=== PATIENT | male | born 1975 | race Caucasian/White ===

== ENCOUNTER 2016-04-11 13:02 | Emergency (ER) | payer SELFPAY ==
[2016-04-11] MEDS ORDERED: Sodium Chloride 0.9% 1,000 ML IV ONE (13:22)
[2016-04-11] MEDS ORDERED: Sodium Chloride 0.9% 2.5 ML Syringe FLUSH PRN (13:22)
[2016-04-11] MEDS ORDERED: Acetaminophen 325 MG Tab PO ONE (13:22)
[2016-04-11] MEDS ORDERED: Sodium Chloride 0.9% 10 ML Syringe FLUSH PRN (13:22)
--- NOTE | 2016-04-11 13:24 | EDM.PDOC ---
ED HPI GENERAL MEDICAL PROBLEM - General Chief Complaint: General Stated Complaint: WEAK Time Seen by Provider: 04/11/16 13:15 - History of Present Illness INITIAL COMMENTS - FREE TEXT/NARRATIVE: HISTORY AND PHYSICAL: History of present illness: The patient is a 41-year-old male who presents with generalized weakness malaise cough feverish feeling that all started this morning when he woke up. The patient has been here 5 prior times for migraine headaches and does state he has a slight dull headache but it is not his usual migraine. He does also complain of a sore throat but no abdominal pain no shortness of breath no chest pain no vomiting. The patient has had several loose stools today but he has been trying to drink fluids but he agrees he is not as much as usual. The patient has not tried any [id number] cold medications or medications at all for his symptoms. Patient denies urinary issues back or neck pain. Review of systems: As per history of present illness and below otherwise all systems reviewed and negative. Past medical history: As per history of present illness and as reviewed below otherwise noncontributory. Surgical history: As per history of present illness and as reviewed below otherwise noncontributory. Social history: No reported history of drug or alcohol abuse. Family history: As per history of present illness and as reviewed below otherwise noncontributory. Physical exam: General: Well-developed well-nourished male who is nontoxic but seems less energetic than prior visits I have had with him. His vital signs of a note by me HEENT: Atraumatic, normocephalic, pupils reactive, negative for conjunctival pallor or scleral icterus, mucous membranes moist, throat clear of exudates but there is some posterior oropharyngeal erythema, uvula is midline, there is no cervical adenopathy or nuchal rigidity, neck supple, nontender, trachea midline. Lungs: Clear to auscultation slightly diminished in the bases, breath sounds equal bilaterally, chest nontender. No work or breathing or sensory muscle use Heart: S1S2, regular rhythm and slightly tachycardic on my evaluation, negative for clicks, rubs, or JVD. Abdomen: Soft, nondistended, nontender. Negative for masses or hepatosplenomegaly. Negative for costovertebral tenderness. Genitourinary: Deferred. Rectal: Deferred. Extremities: Atraumatic, negative for cords or calf pain. Neurovascular unremarkable. Neuro: Awake, alert, oriented. Cranial nerves II through XII unremarkable. Cerebellum unremarkable. Motor and sensory unremarkable throughout. Exam nonfocal. Diagnostics: Chest x-ray influenza swab rapid strep CBC CMP Therapeutics: IV fluids Tylenol Patient looks much improved after the IV fluids and his testing has been discussed with the patient. He is aware of that trace infiltrate in the left base and I will go ahead and put him on Levaquin for that. Advised pushing hydration resting and followup in our clinic. I Advised him on reasons to return to the ER Impression: Generalized weakness and malaise, early left lower lobe infiltrate Definitive disposition and diagnosis as appropriate pending reevaluation and review of above. general Pain Score (Numeric/FACES): 9 - Related Data Allergies Allergy/AdvReac Type Severity Reaction Status Date / Time ketorolac [From Toradol] Allergy Difficulty Verified 04/11/16 13:07 Breathing tramadol Allergy Difficulty Uncoded 04/11/16 13:07 Breathing Home Meds: Home Meds . [No Known Home Meds] 03/19/16 [History] Past Medical History HEENT History: Reports: Impaired vision Musculoskeletal History: Reports: Other (see below) Other Musculoskeletal History: knee surgery Neurological History: Reports: Migraines - Infectious Disease History Infectious Disease History: Reports: None - Past Surgical History Other HEENT Surgeries/Procedures: surgery to have ears put back, eye muscle surgery Musculoskeletal Surgical History: Reports: Shoulder surgery Social & Family History - Family History Family Medical History: Noncontributory - Tobacco Use Smoking Status *Q: Current Every Day Smoker Years of Tobacco use: 25 Packs/Tins Daily: 2 - Caffeine Use Caffeine Use: Reports: Coffee, Energy drinks, Soda Caffeine Use Comment: 2-3 drinks daily - Recreational Drug Use Recreational Drug Use: No ED ROS GENERAL - Review of Systems Review Of Systems: ROS reveals no pertinent complaints other than HPI. ED EXAM, GENERAL - Physical Exam Exam: See Below (See dictation) Course - Vital Signs Last Recorded V/S: Last Vital Signs Temp 37.6 C 04/11/16 13:07 Pulse 107 H 04/11/16 13:07 Resp 16 04/11/16 13:07 BP 122/71 04/11/16 13:07 Pulse Ox 94 L 04/11/16 13:07 - Orders/Labs/Meds Orders: Active Orders 24 hr Category Date Time Status CULTURE STREP A CONFIRMATION [] Stat Lab 04/11/16 14:00 Results STREP SCRN A RAPID W CULT CONF [] Stat Lab 04/11/16 14:00 Results Sodium Chloride 0.9% [Saline Flush] Med 04/11/16 13:22 Active 10 ml FLUSH ASDIRECTED PRN Sodium Chloride 0.9% [Saline Flush] Med 04/11/16 13:22 Active 2.5 ml FLUSH ASDIRECTED PRN Saline Lock Insert [OM.PC] Stat Oth 04/11/16 13:21 Ordered Medication Orders Sodium Chloride (Saline Flush) 10 ml FLUSH ASDIRECTED PRN PRN Reason: Keep Vein Open Sodium Chloride (Saline Flush) 2.5 ml FLUSH ASDIRECTED PRN PRN Reason: Keep Vein Open Labs: Laboratory Tests 04/11/16 04/11/16 Range/Units 13:34 13:34 WBC 8.88 (4.0-11.0) K/uL RBC 5.17 (4.50-5.90) M/uL Hgb 15.3 (13.0-17.0) g/dL Hct 45.4 (38.0-50.0) % MCV 87.8 (80.0-98.0) fL MCH 29.6 (27.0-32.0) pg MCHC 33.7 (31.0-37.0) g/dL RDW Std Deviation 43.4 (28.0-62.0) fl RDW Coeff of Wilbert 14 (11.0-15.0) % Plt Count 175 (150-400) K/uL MPV 9.80 (7.40-12.00) fL Neut % (Auto) 75.9 (48.0-80.0) % Lymph % (Auto) 9.7 L (16.0-40.0) % Zavala % (Auto) 12.2 (0.0-15.0) % Eos % (Auto) 1.7 (0.0-7.0) % Baso % (Auto) 0.5 (0.0-1.5) % Neut # 6.8 H (1.4-5.7) K/uL Lymph # 0.9 (0.6-2.4) K/uL Zavala # 1.1 H (0.0-0.8) K/uL Eos # 0.2 (0.0-0.7) K/uL Baso # 0.0 (0.0-0.1) K/uL Nucleated RBC % 0.0 /100WBC Nucleated RBCs # 0 K/uL Sodium 136 (136-146) mmol/L Potassium 4.1 (3.5-5.1) mmol/L Chloride 105 (98-110) mmol/L Carbon Dioxide 24 (21-31) mmol/L BUN 8 (6.0-23.0) mg/dL Creatinine 0.8 (0.6-1.5) mg/dL Est Cr Clr Drug Dosing 123.97 mL/min Estimated GFR (MDRD) > 60.0 ml/min Glucose 107 (60-110) mg/dL Calcium 9.1 (8.8-10.8) mg/dL Total Bilirubin 0.6 (0.1-1.5) mg/dL AST 18 (5-40) IU/L ALT 25 (8-54) IU/L Alkaline Phosphatase 67 (40-150) Total Protein 7.3 (6.0-8.0) g/dL Albumin 4.2 (3.5-5.0) g/dL Globulin 3.1 (2.0-3.5) g/dL Albumin/Globulin Ratio 1.4 (1.3-2.8) Meds: Medications Generic Name Dose Route Start Last Admin Trade Name Freq PRN Reason Stop Dose Admin Sodium Chloride 10 ml 04/11/16 13:22 Saline Flush FLUSH ASDIRECTED PRN Keep Vein Open Sodium Chloride 2.5 ml 04/11/16 13:22 Saline Flush FLUSH ASDIRECTED PRN Keep Vein Open Discontinued Medications Generic Name Dose Route Start Last Admin Trade Name Freq PRN Reason Stop Dose Admin Acetaminophen 650 mg 04/11/16 13:22 04/11/16 13:55 Tylenol PO 04/11/16 13:23 650 mg NOW ONE Administration Sodium Chloride 1,000 mls @ 999 mls/hr 04/11/16 13:22 04/11/16 13:56 Normal Saline IV 04/11/16 14:22 999 mls/hr STAT ONE Administration Departure - Departure Time of Disposition: 15:02 Disposition: Home, Self-Care 01 Condition: good Clinical Impression: Pneumonia Forms: ED Department Discharge Additional Instructions: The following information is given to patients seen in the emergency department who are being discharged to home. This information is to outline your options for follow-up care. We provide all patients seen in our emergency department with a follow-up referral. The need for follow-up, as well as the timing and circumstances, are variable depending upon the specifics of your emergency department visit. If you don't have a primary care physician on staff, we will provide you with a referral. We always advise you to contact your personal physician following an emergency department visit to inform them of the circumstance of the visit and for follow-up with them and/or the need for any referrals to a consulting specialist. The emergency department will also refer you to a specialist when appropriate. This referral assures that you have the opportunity for followup care with a specialist. All of these measure are taken in an effort to provide you with optimal care, which includes your followup. Under all circumstances we always encourage you to contact your private physician who remains a resource for coordinating your care. When calling for followup care, please make the office aware that this follow-up is from your recent emergency room visit. If for any reason you are refused follow-up, please contact the [facility] emergency department at and ask to speak to the emergency department charge nurse. [facility] Primary care- [place] [address] Please push hydration and avoid caffeinated products and use [id number] Tylenol or ibuprofen for pain and fevers. Take advice as directed until you are finished. Please call and followup in the clinic for further care and evaluation and return here as needed and as discussed - My Orders Last 24 Hours: My Active Orders 04/11/16 13:21 Saline Lock Insert [OM.PC] Stat 04/11/16 13:22 Sodium Chloride 0.9% [Saline Flush] 10 ml FLUSH ASDIRECTED PRN Sodium Chloride 0.9% [Saline Flush] 2.5 ml FLUSH ASDIRECTED PRN 04/11/16 14:00 CULTURE STREP A CONFIRMATION [RM] Stat STREP SCRN A RAPID W CULT CONF [RM] Stat - Assessment/Plan Last 24 Hours: My Active Orders 04/11/16 13:21 Saline Lock Insert [OM.PC] Stat 04/11/16 13:22 Sodium Chloride 0.9% [Saline Flush] 10 ml FLUSH ASDIRECTED PRN Sodium Chloride 0.9% [Saline Flush] 2.5 ml FLUSH ASDIRECTED PRN 04/11/16 14:00 CULTURE STREP A CONFIRMATION [RM] Stat STREP SCRN A RAPID W CULT CONF [RM] Stat
--- NOTE | 2016-04-11 13:51 | CR ---
EXAMINATION: Two-view chest (PA and Lateral views). HISTORY: Shortness of breath. FINDINGS: The trachea is midline. The cardiomediastinal silhouette is within normal limits. There is a trace l eft basilar atelectasis and/or infiltrate. No pleural effusion or pneumothorax. Osseous structures appear unremarkable. IMPRESSION: Trace left basilar atelectasis and/or infiltrate.
[2016-04-11 14:13] LABS: CHLORIDE,CL 105 mmol/L (98-110); SODIUM,NA 136 mmol/L (136-146)
[2016-04-11 15:21] VITALS: BP 130/59
== END 2016-04-11 15:18 | disposition home or self-care (01) ==
LOC: MW.ED 13:02
DX: J18.9 Pneumonia, unspecified organism (principal); F17.210 Nicotine dependence, cigarettes, uncomplicated; Z88.6 Allergy status to analgesic agent; Z88.8 Allergy status to other drugs, medicaments and biological substances
CPT/HCPCS: 36415; 71020; 80053; 85025; 87081; 87804; 87880; 96360; 99283; A9270; J7040

== ENCOUNTER → 2016-04-17 | Outpatient (CLI) | payer SELFPAY | LOC: MW.CHIM 08:00 | PROVIDERS: ATTEND Internal Medicine | DX: M54.9 Dorsalgia, unspecified (principal); G89.29 Other chronic pain; R51 Headache; R09.81 Nasal congestion | CPT/HCPCS: 99203 ==

== ENCOUNTER 2016-04-20 18:54 | Emergency (ER) | payer SELFPAY ==
--- NOTE | 2016-04-20 19:32 | EDM.PDOC ---
ED HPI GENERAL MEDICAL PROBLEM - General Chief Complaint: Chest Pain Stated Complaint: CHEST PAIN/TROUBLE BREATHING /PAIN HANDS Time Seen by Provider: 04/20/16 19:34 - History of Present Illness INITIAL COMMENTS - FREE TEXT/NARRATIVE: HISTORY AND PHYSICAL: History of present illness: Patient 41-year-old white male presented dyspnea patient denies fever chills nausea vomiting palpitations or other complaints patient is a smoker Review of systems: As per history of present illness and below otherwise all systems reviewed and negative. Past medical history: As per history of present illness and as reviewed below otherwise noncontributory. Surgical history: As per history of present illness and as reviewed below otherwise noncontributory. Social history: No reported history of drug or alcohol abuse. Family history: As per history of present illness and as reviewed below otherwise noncontributory. Physical exam: HEENT: Atraumatic, normocephalic, pupils reactive, negative for conjunctival pallor or scleral icterus, mucous membranes moist, throat clear, neck supple, nontender, trachea midline. Lungs: Clear to auscultation, breath sounds equal bilaterally, chest nontender. Heart: S1S2, regular, negative for clicks, rubs, or JVD. Abdomen: Soft, nondistended, nontender. Negative for masses or hepatosplenomegaly. Negative for costovertebral tenderness. Pelvis: Stable nontender. Genitourinary: Deferred. Rectal: Deferred. Extremities: Atraumatic, negative for cords or calf pain. Neurovascular unremarkable. Neuro: Awake, alert, oriented. Cranial nerves II through XII unremarkable. Cerebellum unremarkable. Motor and sensory unremarkable throughout. Exam nonfocal. Diagnostics: Chest x-ray EKG Therapeutics: None Impression: #1 dyspnea Definitive disposition and diagnosis as appropriate pending reevaluation and review of above. Anterior Chest Pain Score (Numeric/FACES): 9 - Related Data Allergies Allergy/AdvReac Type Severity Reaction Status Date / Time ketorolac [From Toradol] Allergy Difficulty Verified 04/20/16 19:07 Breathing tramadol Allergy Difficulty Uncoded 04/20/16 19:07 Breathing Home Meds: Home Meds . [No Known Home Meds] 03/19/16 [History] Past Medical History HEENT History: Reports: Impaired vision Musculoskeletal History: Reports: Other (see below) Other Musculoskeletal History: knee surgery Neurological History: Reports: Migraines Psychiatric History: Reports: None - Infectious Disease History Infectious Disease History: Reports: Chicken pox - Past Surgical History Other HEENT Surgeries/Procedures: surgery to have ears put back, eye muscle surgery Musculoskeletal Surgical History: Reports: Shoulder surgery Social & Family History - Family History Family Medical History: Noncontributory - Tobacco Use Smoking Status *Q: Current Every Day Smoker Years of Tobacco use: 20 Packs/Tins Daily: 0.5 - Caffeine Use Caffeine Use: Reports: Coffee, Energy drinks Caffeine Use Comment: 2-3 drinks daily - Recreational Drug Use Recreational Drug Use: No ED ROS GENERAL - Review of Systems Review Of Systems: ROS reveals no pertinent complaints other than HPI. ED EXAM, GENERAL - Physical Exam Exam: See Below (See dictation) Course - Vital Signs Last Recorded V/S: Last Vital Signs Temp 36.4 C 04/20/16 19:07 Pulse 71 04/20/16 19:07 Resp 16 04/20/16 19:07 BP 115/61 04/20/16 19:07 Pulse Ox 98 04/20/16 19:07 - Orders/Labs/Meds Orders: Active Orders 24 hr Category Date Time Status EKG 12 Lead [EKG Documentation Completion] [RC] STAT Care 04/20/16 19:05 Active Chest 1V Frontal [CR] Stat Exams 04/20/16 19:04 Taken Departure - Departure Time of Disposition: 19:33 Disposition: Home, Self-Care 01 Condition: good Clinical Impression: Dyspnea Forms: ED Department Discharge Additional Instructions: The following information is given to patients seen in the emergency department who are being discharged to home. This information is to outline your options for follow-up care. We provide all patients seen in our emergency department with a follow-up referral. The need for follow-up, as well as the timing and circumstances, are variable depending upon the specifics of your emergency department visit. If you don't have a primary care physician on staff, we will provide you with a referral. We always advise you to contact your personal physician following an emergency department visit to inform them of the circumstance of the visit and for follow-up with them and/or the need for any referrals to a consulting specialist. The emergency department will also refer you to a specialist when appropriate. This referral assures that you have the opportunity for followup care with a specialist. All of these measure are taken in an effort to provide you with optimal care, which includes your followup. Under all circumstances we always encourage you to contact your private physician who remains a resource for coordinating your care. When calling for followup care, please make the office aware that this follow-up is from your recent emergency room visit. If for any reason you are refused follow-up, please contact the [facility] emergency department at and asked to speak to the emergency department charge nurse. [facility] [address] [place] [id number] Albuterol metered-dose inhaler as prescribed followup primary medical doctor in our clinic as discussed return as needed discussed that smoking - My Orders Last 24 Hours: My Active Orders 04/20/16 19:05 EKG 12 Lead [EKG Documentation Completion] [RC] STAT - Assessment/Plan Last 24 Hours: My Active Orders 04/20/16 19:05 EKG 12 Lead [EKG Documentation Completion] [RC] STAT
[2016-04-20 20:03] VITALS: BP 120/60
--- NOTE | 2016-04-23 19:11 | CR ---
EXAM DATE: 04/20/16 PATIENT'S AGE: 41 Patient: IMANI JACKSON Facility: [place], [place] Site . Site : 1975 Study: XRay Chest [id number]/[id number] 7:21:19 PM Ordering Physician: Doctor Jackson Final Report: Indication: Chest pain Technique: Chest 1 view. Comparison: April 11, 2026 Findings: Cardiovascular and mediastinum: Heart size and vasculature are normal in caliber and appearance. Mediastinum is within normal limits. Lungs and pleural space: Lungs are clear. No sign of infiltrate or mass. No sign of pleural effusion. No pneumothorax. Bones and soft tissues: No significant findings. Impression: No sign of acute disease. Dictated by Verna Acosta MD @ Apr 20 2016 7:42PM (Electronic Signature) Report Signed by Proxy and Original Signed Document filed in the Medical Record. THOMASD
== END 2016-04-20 20:00 | disposition home or self-care (01) ==
LOC: MW.ED 18:54
DX: R06.00 Dyspnea, unspecified (principal); F17.210 Nicotine dependence, cigarettes, uncomplicated; Z88.6 Allergy status to analgesic agent; Z88.8 Allergy status to other drugs, medicaments and biological substances; Z98.890 Other specified postprocedural states
CPT/HCPCS: 71010; 71010-26; 93005; 99283; 99285-25

== ENCOUNTER 2016-04-28 21:44 | Emergency (ER) | payer SELFPAY ==
--- NOTE | 2016-04-28 21:54 | EDM.PDOC ---
ED HPI HEADACHE COMPLAINT - General Stated Complaint: SEVERE MIGRAINE Time Seen by Provider: 04/28/16 21:50 Source of Information: Reports: Patient History Limitations: Reports: No limitations - History of Present Illness INITIAL COMMENTS - FREE TEXT/NARRATIVE: HISTORY AND PHYSICAL: History of present illness: 41-year-old male well known to our emergency medicine service for very frequent visits for her complaints and now presents to the emergency department complaining of a "migraine from hell. "Injury as patient was cheerful jovial and texting on his phone busily. On exam patient is saying his pain is so bad it's hard to open his eyes but then after urging opens normally appears completely comfortable. No visual changes speech changes weakness or difficulty with gait. No stiff neck or fever Review of systems: As per history of present illness and below otherwise all systems reviewed and negative. Past medical history: As per history of present illness and as reviewed below otherwise noncontributory. Surgical history: As per history of present illness and as reviewed below otherwise noncontributory. Social history: No reported history of drug or alcohol abuse. Family history: As per history of present illness and as reviewed below otherwise noncontributory. Physical exam: Patient comfortable and well-appearing alert vigorous. Supple neck no acute distress HEENT: Atraumatic, normocephalic, pupils reactive, negative for conjunctival pallor or scleral icterus, mucous membranes moist, throat clear, neck supple, nontender, trachea midline. Lungs: Clear to auscultation, breath sounds equal bilaterally, chest nontender. Heart: S1S2, regular, negative for clicks, rubs, or JVD. Abdomen: Soft, nondistended, nontender. Negative for masses or hepatosplenomegaly. Negative for costovertebral tenderness. Pelvis: Stable nontender. Genitourinary: Deferred. Rectal: Deferred. Extremities: Atraumatic, negative for cords or calf pain. Neurovascular unremarkable. Neuro: Awake, alert, oriented. Cranial nerves II through XII unremarkable. Cerebellum unremarkable. Motor and sensory unremarkable throughout. Exam nonfocal. Diagnostics: [] Therapeutics: [] Impression: [] Plan: [] Definitive disposition and diagnosis as appropriate pending reevaluation and review of above. - Related Data Allergies/ADRs: Allergies Allergy/AdvReac Type Severity Reaction Status Date / Time ketorolac [From Toradol] Allergy Difficulty Verified 04/20/16 19:07 Breathing tramadol Allergy Difficulty Uncoded 04/20/16 19:07 Breathing Home Meds: Home Meds . [No Known Home Meds] 03/19/16 [History] Past Medical History HEENT History: Reports: Impaired vision Musculoskeletal History: Reports: Other (see below) Other Musculoskeletal History: knee surgery Neurological History: Reports: Migraines Psychiatric History: Reports: None - Infectious Disease History Infectious Disease History: Reports: Chicken pox - Past Surgical History Other HEENT Surgeries/Procedures: surgery to have ears put back, eye muscle surgery Musculoskeletal Surgical History: Reports: Shoulder surgery Social & Family History - Family History Family Medical History: Noncontributory - Tobacco Use Smoking Status *Q: Current Every Day Smoker Years of Tobacco use: 20 Packs/Tins Daily: 0.5 - Caffeine Use Caffeine Use: Reports: Coffee, Energy drinks Caffeine Use Comment: 2-3 drinks daily - Recreational Drug Use Recreational Drug Use: No ED ROS GENERAL - Review of Systems Review Of Systems: See Below (Per history of present illness) - Physical Exam Exam: See Below (As per history of present illness) Course - Vital Signs Text/Narrative:: Signs and symptoms consistent with what patient claims as a severe migraine however he was extremely well appearing and was cheerful and texturing in triage. Patient has a long history of malingering and drug-seeking with his girlfriend including approximately 30 visits to the emergency department within the last month and a half between he and his girlfriend. Patient treated with NSAIDs and needing. No further workup or treatment indicated. Patient agrees with outpatient followup. Strict return precautions given Last Recorded V/S: Last Vital Signs Temp 36.8 C 04/28/16 22:24 Pulse 82 04/28/16 22:24 Resp 17 04/28/16 22:24 BP 111/66 04/28/16 22:24 Pulse Ox 96 04/28/16 22:24 - Orders/Labs/Meds Meds: Medications Discontinued Medications Generic Name Dose Route Start Last Admin Trade Name Cesarq PRN Reason Stop Dose Admin Ibuprofen 800 mg 04/28/16 22:06 04/28/16 22:22 Motrin PO 04/28/16 22:07 800 mg ONETIME ONE Administration Departure - Departure Time of Disposition: 22:07 Disposition: Home, Self-Care 01 Condition: good Clinical Impression: Migraine Instructions: Migraine Headache, [id number] Referrals: Rinku Almonte DO [Primary Care Provider] - Forms: ED Department Discharge Additional Instructions: Your headache is consistent with a migraine headache which is a known diagnosis for you. Take Motrin every 6 hours and Tylenol every 4 hours as needed for pain. Drink plenty of fluids and quit smoking. The aware that continuing to smoke will have severe fracture on your long-term health . follow up with your Tomorrow morning.
[2016-04-28] MEDS ORDERED: Ibuprofen 800 MG Tab PO ONE (22:06)
[2016-04-28 22:28] VITALS: BP 111/66
== END 2016-04-28 22:25 | disposition home or self-care (01) ==
LOC: MW.ED 21:44
DX: G43.909 Migraine, unspecified, not intractable, without status migrainosus (principal); F17.210 Nicotine dependence, cigarettes, uncomplicated; Z98.890 Other specified postprocedural states; Z88.5 Allergy status to narcotic agent; Z88.6 Allergy status to analgesic agent
CPT/HCPCS: 99283; A9270

== ENCOUNTER 2016-05-01 14:42 | Emergency (ER) | payer SELFPAY ==
--- NOTE | 2016-05-01 15:38 | CR ---
EXAMINATION: Right shoulder HISTORY: Pain COMPARISON: None TECHNIQUE: 3 views FINDINGS/IMPRESSION: There is no acute osseous abnormality, dislocation, or fracture identified. Bon e mineralization appears normal. 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
--- NOTE | 2016-05-01 15:45 | EDM.PDOC ---
ED HPI Trauma - General Chief Complaint: Upper Extremity Injury/Pain Stated Complaint: RT SHOULDER HURTS Time Seen by Provider: 05/01/16 15:00 Source: Reports: Patient History Limitations: Reports: No limitations - History of Present Illness INITIAL COMMENTS - FREE TEXT/NARRATIVE: History of present illness: [41-year-old male presenting with complaints of acute right shoulder pain status post lifting furniture to help a friend move. Patient has chronic musculoskeletal issues inclusive of a rotator cuff repair on the other shoulder. ] Review of systems: As per history of present illness and below otherwise all systems reviewed and negative. Past medical history: As per history of present illness and as reviewed below otherwise noncontributory. Surgical history: As per history of present illness and as reviewed below otherwise noncontributory. Social history: No reported history of drug or alcohol abuse. Family history: As per history of present illness and as reviewed below otherwise noncontributory. Physical exam: HEENT: Atraumatic, normocephalic, pupils reactive, negative for conjunctival pallor or scleral icterus, mucous membranes moist, throat clear, neck supple, nontender, trachea midline. Lungs: Clear to auscultation, breath sounds equal bilaterally, chest nontender. Heart: S1S2, regular, negative for clicks, rubs, or JVD. Abdomen: Soft, nondistended, nontender. Negative for masses or hepatosplenomegaly. Negative for costovertebral tenderness. Pelvis: Stable nontender. Genitourinary: Deferred. Rectal: Deferred. Extremities: Atraumatic, negative for cords or calf pain. Neurovascular unremarkable. Neuro: Awake, alert, oriented. Cranial nerves II through XII unremarkable. Cerebellum unremarkable. Motor and sensory unremarkable throughout. Exam nonfocal. A certain amount of guarding noted with with active range of motion of right arm. Some small amount of crepitus noted. Diagnostics: [X-ray right shoulder] Therapeutics: [] Impression: [Arthritis right shoulder] Plan: [Meloxicam Definitive disposition and diagnosis as appropriate pending reevaluation and review of above. Allergies/ADRs: Allergies ketorolac [From Toradol] Allergy (Verified 05/01/16 14:59) Difficulty Breathing tramadol Allergy (Uncoded 04/20/16 19:07) Difficulty Breathing Home Medications: Ambulatory Orders Meloxicam 7.5 mg PO BID #60 tablet 05/01/16 Past Medical History - Past Health History Medical/Surgical History: Denies Medical/Surgical History HEENT History: Reports: Impaired vision Musculoskeletal History: Reports: Other (see below) Other Musculoskeletal History: knee surgery Neurological History: Reports: Migraines Psychiatric History: Reports: None - Infectious Disease History Infectious Disease History: Reports: Chicken pox - Past Surgical History Other HEENT Surgeries/Procedures: surgery to have ears put back, eye muscle surgery Musculoskeletal Surgical History: Reports: Shoulder surgery Social & Family History - Family History Family Medical History: Noncontributory - Tobacco Use Smoking Status *Q: Current Every Day Smoker Years of Tobacco use: 20 Packs/Tins Daily: 0.7 - Caffeine Use Caffeine Use: Reports: Coffee, Energy drinks, Soda Caffeine Use Comment: 2-3 drinks daily - Recreational Drug Use Recreational Drug Use: No Review of Systems - Review of Systems Review Of Systems: See Below (See history of present illness) Trauma Exam - Physical Exam Exam: See Below (The history of present illness) Course - Vital Signs Last Recorded V/S: Last Vital Signs Temp 37.1 C 05/01/16 14:57 Pulse 82 05/01/16 14:57 Resp 16 05/01/16 14:57 BP 120/65 05/01/16 14:57 Pulse Ox 99 05/01/16 14:57 - Orders/Labs/Meds Orders: Active Orders 24 hr Category Date Time Status Shoulder Comp Rt [CR] Stat Exams 05/01/16 15:03 Ordered Departure - Departure Time of Disposition: 15:47 Disposition: Home, Self-Care 01 Condition: good Clinical Impression: Arthritis Forms: ED Department Discharge Additional Instructions: The following information is given to patients seen in the emergency department who are being discharged to home. This information is to outline your options for follow-up care. We provide all patients seen in our emergency department with a follow-up referral. The need for follow-up, as well as the timing and circumstances, are variable depending upon the specifics of your emergency department visit. If you don't have a primary care physician on staff, we will provide you with a referral. We always advise you to contact your personal physician following an emergency department visit to inform them of the circumstance of the visit and for follow-up with them and/or the need for any referrals to a consulting specialist. The emergency department will also refer you to a specialist when appropriate. This referral assures that you have the opportunity for follow-up care with a specialist. All of these measure are taken in an effort to provide you with optimal care, which includes your follow-up. Under all circumstances we always encourage you to contact your private physician who remains a resource for coordinating your care. When calling for follow-up care, please make the office aware that this follow-up is from your recent emergency room visit. If for any reason you are refused follow-up, please contact the [facility] Emergency Department at and asked to speak to the emergency department charge n Followup with primary care provider Return to ED as needed as discussed - My Orders Last 24 Hours: My Active Orders 05/01/16 15:03 Shoulder Comp Rt [CR] Stat - Assessment/Plan Last 24 Hours: My Active Orders 05/01/16 15:03 Shoulder Comp Rt [CR] Stat
[2016-05-01 16:20] VITALS: BP 116/61
== END 2016-05-01 16:15 | disposition home or self-care (01) ==
LOC: MW.ED 14:42
DX: M19.011 Primary osteoarthritis, right shoulder (principal); F17.210 Nicotine dependence, cigarettes, uncomplicated; Z88.8 Allergy status to other drugs, medicaments and biological substances; Z79.899 Other long term (current) drug therapy; Z98.890 Other specified postprocedural states
CPT/HCPCS: 73030-26-RT; 73030-RT; 99283

== ENCOUNTER → 2016-05-08 | Outpatient (CLI) | payer SELFPAY | LOC: MW.CHIM 08:00 | PROVIDERS: ATTEND Internal Medicine | DX: G89.29 Other chronic pain (principal); M54.9 Dorsalgia, unspecified; R09.81 Nasal congestion; R51 Headache | CPT/HCPCS: 99214 ==

== ENCOUNTER 2016-05-16 18:32 | Emergency (ER) | payer SELFPAY ==
--- NOTE | 2016-05-16 19:01 | EDM.PDOC ---
ED HISTORY OF PRESENT ILLNESS - General Chief Complaint: Chest Pain Stated Complaint: PT HAS CHEST PAINS Time Seen by Provider: 05/16/16 18:40 Source of Information: Reports: Patient, EMS History Limitations: Reports: No limitations - History of Present Illness INITIAL COMMENTS - FREE TEXT/NARRATIVE: HISTORY AND PHYSICAL: History of present illness: [Patient comes to the emergency room via EMS. He complains of left mid chest pain for the past 2 days. He complains of a constant sensation of hammering over his sternum. No known precipitating events. He denies shortness of breath and difficulty breathing. No radiation into his neck, jaw, left shoulder or down his arms. No coughing. Has not taken any medications to relieve his chest pain, and has not found any relieving treatments for his symptoms. Was given one dose of nitroglycerin and 324 mg of aspirin by EMS in route to ER. Smokes 1 ppd. Denies drug use. Rare ETOH use. ] Review of systems: As per history of present illness and below otherwise all systems reviewed and negative. Past medical history: As per history of present illness and as reviewed below otherwise noncontributory. Surgical history: As per history of present illness and as reviewed below otherwise noncontributory. Social history: No reported history of drug or alcohol abuse. Family history: As per history of present illness and as reviewed below otherwise noncontributory. Physical exam: HEENT: Atraumatic, normocephalic. negative for conjunctival pallor or scleral icterus. mucous membranes moist. Throat is clear. neck supple, no lymphadenopathy. trachea midline. Lungs: Clear to auscultation, breath sounds equal bilaterally. Heart: S1S2, regular rate and rhythm. negative for clicks, rubs. Chest pain is easily reproducible with palpation over the upper sternal area. Abdomen: Normoactive bowel sounds. Soft, nondistended, nontender. Pelvis: Stable nontender. Genitourinary: Deferred. Rectal: Deferred. Extremities: Atraumatic. No cyanosis or edema to feet or lower legs. Neuro: Awake, alert, oriented. Cranial nerves II through XII unremarkable. Motor and sensory unremarkable throughout. Exam nonfocal. Diagnostics: [CBC, CMP, troponin, chest x-ray, EKG] Therapeutics: [Norflex 30mg IM] Impression: [chest pain, non-cardiac] Plan: [Reviewed the following with the patient: lab results are unremarkable and troponin was within normal limits. EKG is unchanged from previous and chest x- ray is unremarkable. He is unable to tolerate Toradol and tramadol. He is given Norflex 30 mg IM. Tylenol or ibuprofen as needed for discomfort in his chest. Followup with his primary care provider. All of his questions are answered and concerns are addressed.] Definitive disposition and diagnosis as appropriate pending reevaluation and review of above. - Related Data Allergies/ADRs: Allergies Allergy/AdvReac Type Severity Reaction Status Date / Time ketorolac [From Toradol] Allergy Difficulty Verified 05/16/16 18:42 Breathing tramadol Allergy Difficulty Uncoded 04/20/16 19:07 Breathing Home Meds: Home Meds Hydrocodone/Acetaminophen [[place] 10-325 Tablet] 1 tab PO ASDIRECTED 05/16/16 [ History] Past Medical History - Past Health History Medical/Surgical History: Denies Medical/Surgical History HEENT History: Reports: Impaired vision Musculoskeletal History: Reports: Other (see below) Other Musculoskeletal History: knee surgery Neurological History: Reports: Migraines Psychiatric History: Reports: None - Infectious Disease History Infectious Disease History: Reports: Chicken pox - Past Surgical History Other HEENT Surgeries/Procedures: surgery to have ears put back, eye muscle surgery Musculoskeletal Surgical History: Reports: Shoulder surgery Social & Family History - Family History Family Medical History: Noncontributory - Tobacco Use Smoking Status *Q: Current Every Day Smoker Years of Tobacco use: 20 Packs/Tins Daily: 1 - Caffeine Use Caffeine Use: Reports: None Caffeine Use Comment: 2-3 drinks daily - Recreational Drug Use Recreational Drug Use: No ED ROS GENERAL - Review of Systems Review Of Systems: ROS reveals no pertinent complaints other than HPI. ED EXAM, GENERAL - Physical Exam Exam: See Below Course - Vital Signs Last Recorded V/S: Last Vital Signs Temp 99.2 F 05/16/16 20:14 Pulse 78 05/16/16 20:14 Resp 18 05/16/16 20:14 BP 122/73 05/16/16 20:14 Pulse Ox 96 05/16/16 20:14 - Orders/Labs/Meds Orders: Active Orders 24 hr Category Date Time Status EKG 12 Lead [EKG Documentation Completion] [RC] URGENT Care 05/16/16 18:36 Active Chest 2V [CR] Stat Exams 05/16/16 18:48 Taken Labs: Laboratory Tests 05/16/16 05/16/16 05/16/16 Range/Units 18:55 18:55 18:55 WBC 7.54 (4.0-11.0) K/uL RBC 4.93 (4.50-5.90) M/uL Hgb 14.7 (13.0-17.0) g/dL Hct 43.2 (38.0-50.0) % MCV 87.6 (80.0-98.0) fL MCH 29.8 (27.0-32.0) pg MCHC 34.0 (31.0-37.0) g/dL RDW Std Deviation 41.0 (28.0-62.0) fl RDW Coeff of Wilbert 13 (11.0-15.0) % Plt Count 184 (150-400) K/uL MPV 9.30 (7.40-12.00) fL Neut % (Auto) 45.6 L (48.0-80.0) % Lymph % (Auto) 42.2 H (16.0-40.0) % Griggs % (Auto) 8.0 (0.0-15.0) % Eos % (Auto) 3.7 (0.0-7.0) % Baso % (Auto) 0.5 (0.0-1.5) % Neut # (Auto) 3.4 (1.4-5.7) K/uL Lymph # (Auto) 3.2 H (0.6-2.4) K/uL Griggs # (Auto) 0.6 (0.0-0.8) K/uL Eos # (Auto) 0.3 (0.0-0.7) K/uL Baso # (Auto) 0.0 (0.0-0.1) K/uL Nucleated RBC % 0.0 /100WBC Nucleated RBCs # 0 K/uL Sodium 140 (136-146) mmol/L Potassium 4.1 (3.5-5.1) mmol/L Chloride 108 (98-110) mmol/L Carbon Dioxide 23 (21-31) mmol/L BUN 13 (6.0-23.0) mg/dL Creatinine 0.9 (0.6-1.5) mg/dL Est Cr Clr Drug Dosing 110.20 mL/min Estimated GFR (MDRD) > 60.0 ml/min Glucose 94 (60-110) mg/dL Calcium 8.9 (8.8-10.8) mg/dL Total Bilirubin 0.3 (0.1-1.5) mg/dL AST 13 (5-40) IU/L ALT 15 (8-54) IU/L Alkaline Phosphatase 57 (40-150) Troponin I < 0.10 (0.0-0.29) NG/ML Total Protein 6.7 (6.0-8.0) g/dL Albumin 3.8 (3.5-5.0) g/dL Globulin 2.9 (2.0-3.5) g/dL Albumin/Globulin Ratio 1.3 (1.3-2.8) Meds: Medications Discontinued Medications Generic Name Dose Route Start Last Admin Trade Name Freq PRN Reason Stop Dose Admin Orphenadrine Citrate 30 mg 05/16/16 20:00 Norflex IM Q12H MAMADOU Orphenadrine Citrate 30 mg 05/16/16 19:50 05/16/16 20:00 Norflex IM 05/16/16 19:51 30 mg NOW STA Administration Departure - Departure Time of Disposition: 19:50 Disposition: Home, Self-Care 01 Clinical Impression: Chest pain, non-cardiac Instructions: Nonspecific Chest Pain Referrals: PCP,None [Primary Care Provider] - Forms: ED Department Discharge Additional Instructions: The following information is given to patients seen in the emergency department who are being discharged to home. This information is to outline your options for follow-up care. We provide all patients seen in our emergency department with a follow-up referral. The need for follow-up, as well as the timing and circumstances, are variable depending upon the specifics of your emergency department visit. If you don't have a primary care physician on staff, we will provide you with a referral. We always advise you to contact your personal physician following an emergency department visit to inform them of the circumstance of the visit and for follow-up with them and/or the need for any referrals to a consulting specialist. The emergency department will also refer you to a specialist when appropriate. This referral assures that you have the opportunity for follow-up care with a specialist. All of these measure are taken in an effort to provide you with optimal care, which includes your follow-up. Under all circumstances we always encourage you to contact your private physician who remains a resource for coordinating your care. When calling for follow-up care, please make the office aware that this follow-up is from your recent emergency room visit. If for any reason you are refused follow-up, please contact the [facility] emergency department at and asked to speak to the emergency department charge nurse. [facility] Primary [facility] [address] [place] [id number] Followup with your primary care provider in 48-72 hours. Take all medications as prescribed. May take ibuprofen and Tylenol as needed for discomfort. Return to ER as needed as discussed. - My Orders Last 24 Hours: My Active Orders 05/16/16 18:48 Chest 2V [CR] Stat - Assessment/Plan Last 24 Hours: My Active Orders 05/16/16 18:48 Chest 2V [CR] Stat
[2016-05-16 19:26] LABS: CHLORIDE,CL 108 mmol/L (98-110); SODIUM,NA 140 mmol/L (136-146)
[2016-05-16 20:15] VITALS: BP 122/73
--- NOTE | 2016-05-17 10:18 | CR ---
EXAM DATE: 05/16/16 PATIENT'S AGE: 41 Patient: IMANI JACKSON Facility: [place], [place] Site . Site : [id number] Study: XRay Chest [id number]/[id number] 7:12:43 PM Ordering Physician: Doctor Jackson Final Report: INDICATION: Low-grade fever. Chest pain. Shortness of breath. TECHNIQUE: PA and lateral chest. COMPARISON: Single-view chest April 20, 2016 and two-view chest x-ray April 11, 2016. FINDINGS: Clear lungs. Normal heart size and pulmonary vascularity. Normal included skeletal thorax. IMPRESSION: No acute cardiopulmonary process identified. No significant change. Dictated by Rinku Simmons MD @ 05/16/2016 7:16:04 PM Dictated by: Rinku Simmons MD @ 05/16/2016 19:16:07 (Electronic Signature) Report Signed by Proxy and Original Signed Document filed in the Medical Record. [facility] SYSTEMVanessa
== END 2016-05-16 20:29 | disposition home or self-care (01) ==
LOC: MW.ED 18:32
DX: R07.89 Other chest pain (principal); Z98.890 Other specified postprocedural states; F17.210 Nicotine dependence, cigarettes, uncomplicated; Z88.5 Allergy status to narcotic agent; Z88.6 Allergy status to analgesic agent
CPT/HCPCS: 36415; 71020; 80053; 84484; 85025; 93005; 96372; 99285; J2360; 99284

== ENCOUNTER 2016-06-11 02:03 | Emergency (ER) | payer SELFPAY ==
--- NOTE | 2016-06-11 02:10 | EDM.PDOC ---
ED HPI GENERAL MEDICAL PROBLEM - General Stated Complaint: KIDNEY PROBLEMS Time Seen by Provider: 06/11/16 02:07 - History of Present Illness INITIAL COMMENTS - FREE TEXT/NARRATIVE: HISTORY AND PHYSICAL: History of present illness: Patient 41-year-old male presents with concern of chronic right back pain he states he's had multiple medical problems related this he is well-known to the emergency department and her multiple times for a variety of different complaints has been no reported fever chills vomiting diarrhea trauma or other concerns but no numbness weakness incontinence or retention of bowel or bladder. Review of systems: As per history of present illness and below otherwise all systems reviewed and negative. Past medical history: As per history of present illness and as reviewed below otherwise noncontributory. Surgical history: As per history of present illness and as reviewed below otherwise noncontributory. Social history: No reported history of drug or alcohol abuse. Family history: As per history of present illness and as reviewed below otherwise noncontributory. Physical exam: HEENT: Atraumatic, normocephalic, pupils reactive, negative for conjunctival pallor or scleral icterus, mucous membranes moist, throat clear, neck supple, nontender, trachea midline. Lungs: Clear to auscultation, breath sounds equal bilaterally, chest nontender. Heart: S1S2, regular, negative for clicks, rubs, or JVD. Abdomen: Soft, nondistended, nontender. Negative for masses or hepatosplenomegaly. Negative for costovertebral tenderness. Pelvis: Stable nontender. Genitourinary: Deferred. Rectal: Deferred. Extremities: Atraumatic, negative for cords or calf pain. Neurovascular unremarkable. Neuro: Awake, alert, oriented. Cranial nerves II through XII unremarkable. Cerebellum unremarkable. Motor and sensory unremarkable throughout. Exam nonfocal. Diagnostics: UA urine culture and sensitivity Therapeutics: None Impression: #1 right back pain Definitive disposition and diagnosis as appropriate pending reevaluation and review of above. - Related Data Allergies Allergy/AdvReac Type Severity Reaction Status Date / Time ketorolac [From Toradol] Allergy Difficulty Verified 05/16/16 18:42 Breathing tramadol Allergy Difficulty Uncoded 04/20/16 19:07 Breathing Home Meds: Home Meds Hydrocodone/Acetaminophen [[place] 10-325 Tablet] 1 tab PO ASDIRECTED 05/16/16 [ History] Past Medical History - Past Health History Medical/Surgical History: Denies Medical/Surgical History HEENT History: Reports: Impaired vision Musculoskeletal History: Reports: Other (see below) Other Musculoskeletal History: knee surgery Neurological History: Reports: Migraines Psychiatric History: Reports: None - Infectious Disease History Infectious Disease History: Reports: Chicken pox - Past Surgical History Other HEENT Surgeries/Procedures: surgery to have ears put back, eye muscle surgery Musculoskeletal Surgical History: Reports: Shoulder surgery Social & Family History - Family History Family Medical History: Noncontributory - Tobacco Use Smoking Status *Q: Current Every Day Smoker Years of Tobacco use: 20 Packs/Tins Daily: 1 - Caffeine Use Caffeine Use: Reports: None Caffeine Use Comment: 2-3 drinks daily - Recreational Drug Use Recreational Drug Use: No ED ROS GENERAL - Review of Systems Review Of Systems: ROS reveals no pertinent complaints other than HPI. ED EXAM, GENERAL - Physical Exam Exam: See Below (See dictation) Course - Orders/Labs/Meds Orders: Active Orders 24 hr Category Date Time Status CULTURE URINE [RM] Stat Lab 06/11/16 02:08 Uncollected UA W/MICROSCOPIC [URIN] Stat Lab 06/11/16 02:07 Uncollected Departure - Departure Time of Disposition: 02:09 Disposition: Home, Self-Care 01 Condition: good Clinical Impression: Back pain Additional Instructions: The following information is given to patients seen in the emergency department who are being discharged to home. This information is to outline your options for follow-up care. We provide all patients seen in our emergency department with a follow-up referral. The need for follow-up, as well as the timing and circumstances, are variable depending upon the specifics of your emergency department visit. If you don't have a primary care physician on staff, we will provide you with a referral. We always advise you to contact your personal physician following an emergency department visit to inform them of the circumstance of the visit and for follow-up with them and/or the need for any referrals to a consulting specialist. The emergency department will also refer you to a specialist when appropriate. This referral assures that you have the opportunity for followup care with a specialist. All of these measure are taken in an effort to provide you with optimal care, which includes your followup. Under all circumstances we always encourage you to contact your private physician who remains a resource for coordinating your care. When calling for followup care, please make the office aware that this follow-up is from your recent emergency room visit. If for any reason you are refused follow-up, please contact the [facility] emergency department at and asked to speak to the emergency department charge nurse. [facility] - Urology [address] [place] [id number] Follow up primary medical doctor one to 2 days return as needed as discussed call the schedule routine appointment with urology about his - My Orders Last 24 Hours: My Active Orders 06/11/16 02:07 UA W/MICROSCOPIC [URIN] Stat 06/11/16 02:08 CULTURE URINE [RM] Stat - Assessment/Plan Last 24 Hours: My Active Orders 06/11/16 02:07 UA W/MICROSCOPIC [URIN] Stat 06/11/16 02:08 CULTURE URINE [RM] Stat
[2016-06-11 02:11] VITALS: BP 136/80
== END 2016-06-11 02:35 | disposition home or self-care (01) ==
LOC: MW.ED 02:03
DX: M54.9 Dorsalgia, unspecified (principal); F17.210 Nicotine dependence, cigarettes, uncomplicated; Z88.5 Allergy status to narcotic agent
CPT/HCPCS: 81001; 87086; 99282; 99284

== ENCOUNTER 2016-06-17 18:40 | Emergency (ER) | payer SELFPAY ==
[2016-06-17] MEDS ORDERED: Acetaminophen 325 MG Tab PO ONE (19:32)
--- NOTE | 2016-06-17 19:33 | EDM.PDOC ---
ED HPI GENERAL MEDICAL PROBLEM - General Chief Complaint: General Stated Complaint: DEHYDRATION Time Seen by Provider: 06/17/16 19:09 Source of Information: Reports: Patient History Limitations: Reports: No limitations - History of Present Illness INITIAL COMMENTS - FREE TEXT/NARRATIVE: HISTORY AND PHYSICAL: History of present illness: [11-year-old male very well known to our emergency medicine service for extremely frequent visits to the emergency department with a long history of drug-seeking behavior currently under a retraining order from coming to the emergency department except as a patient, now presents emergency Department as the patient reporting that he said some diarrhea recently patient is concerned he might be dehydrated. Denies abdominal pain. No vomiting. He states he is thirsty he has been drinking a lot of liquids. He has no tachycardia on arrival and is well-appearing] Review of systems: As per history of present illness and below otherwise all systems reviewed and negative. Past medical history: As per history of present illness and as reviewed below otherwise noncontributory. Surgical history: As per history of present illness and as reviewed below otherwise noncontributory. Social history: No reported history of drug or alcohol abuse. Family history: As per history of present illness and as reviewed below otherwise noncontributory. Physical exam: Well-appearing male mucous membranes moist and intact alert and appropriate benign abdomen no evidence of clinically 100 HEENT: Atraumatic, normocephalic, pupils reactive, negative for conjunctival pallor or scleral icterus, mucous membranes moist, throat clear, neck supple, nontender, trachea midline. Lungs: Clear to auscultation, breath sounds equal bilaterally, chest nontender. Heart: S1S2, regular, negative for clicks, rubs, or JVD. Abdomen: Soft, nondistended, nontender. Negative for masses or hepatosplenomegaly. Negative for costovertebral tenderness. Pelvis: Stable nontender. Genitourinary: Deferred. Rectal: Deferred. Extremities: Atraumatic, negative for cords or calf pain. Neurovascular unremarkable. Neuro: Awake, alert, oriented. Cranial nerves II through XII unremarkable. Cerebellum unremarkable. Motor and sensory unremarkable throughout. Exam nonfocal. Diagnostics: [] Therapeutics: [] Impression: [] Plan: [History suggestive of mild viral diarrhea by patient's description. Benign abdomen and remainder of exam is unremarkable no clinical evidence of dehydration no further workup or treatment indicated. Patient and no tachycardia. Patient says his headache mild headache that is typical for him and it was gradual onset so he was given Tylenol for this. Patient agrees with outpatient followup and strict return precautions given] Definitive disposition and diagnosis as appropriate pending reevaluation and review of above. Lower Back Pain Score (Numeric/FACES): 7 - Related Data Allergies Allergy/AdvReac Type Severity Reaction Status Date / Time ketorolac [From Toradol] Allergy Difficulty Verified 06/17/16 19:03 Breathing tramadol Allergy Difficulty Uncoded 06/17/16 19:03 Breathing Home Meds: Home Meds . [No Known Home Meds] 06/11/16 [History] Past Medical History - Past Health History Medical/Surgical History: Denies Medical/Surgical History HEENT History: Reports: Impaired vision Musculoskeletal History: Reports: Other (see below) Other Musculoskeletal History: knee surgery Neurological History: Reports: Migraines Psychiatric History: Reports: None - Infectious Disease History Infectious Disease History: Reports: Chicken pox - Past Surgical History Other HEENT Surgeries/Procedures: surgery to have ears put back, eye muscle surgery Musculoskeletal Surgical History: Reports: Shoulder surgery Social & Family History - Family History Family Medical History: Noncontributory - Tobacco Use Smoking Status *Q: Current Every Day Smoker Years of Tobacco use: 25 Packs/Tins Daily: 1 - Caffeine Use Caffeine Use: Reports: None Caffeine Use Comment: 2-3 drinks daily - Recreational Drug Use Recreational Drug Use: No ED ROS GENERAL - Review of Systems Review Of Systems: See Below (Per history of present illness) ED EXAM, GENERAL - Physical Exam Exam: See Below (Per history of present illness) Course - Vital Signs Last Recorded V/S: Last Vital Signs Temp 37.0 C 06/17/16 19:47 Pulse 94 06/17/16 19:47 Resp 18 06/17/16 19:47 BP 128/61 06/17/16 19:47 Pulse Ox 94 L 06/17/16 19:47 - Orders/Labs/Meds Meds: Medications Discontinued Medications Generic Name Dose Route Start Last Admin Trade Name Freq PRN Reason Stop Dose Admin Acetaminophen 650 mg 06/17/16 19:32 06/17/16 19:45 Tylenol PO 06/17/16 19:33 650 mg NOW ONE Administration Departure - Departure Time of Disposition: 19:30 Disposition: Home, Self-Care 01 Condition: good Clinical Impression: Diarrhea, Anxiety Instructions: Diarrhea, Adult Referrals: Rinku Almonte DO [Primary Care Provider] - Forms: ED Department Discharge Additional Instructions: By your description you have diarrhea and it appears that you're doing a good job maintaining your hydration despite this. Drink plenty of fluids ideally a variety of fluids and not only water. Followup with your Dr. in the next day or 2 and return immediately for new severe or worsening symptoms
[2016-06-17 19:47] VITALS: BP 128/61
== END 2016-06-17 19:48 | disposition home or self-care (01) ==
LOC: MW.ED 18:40
DX: R19.7 Diarrhea, unspecified (principal); F41.9 Anxiety disorder, unspecified; G43.909 Migraine, unspecified, not intractable, without status migrainosus; F17.210 Nicotine dependence, cigarettes, uncomplicated; Z88.5 Allergy status to narcotic agent
CPT/HCPCS: 99284; A9270; 99282

== ENCOUNTER 2017-03-19 23:22 | Emergency (ER) | payer OTHER ==
--- NOTE | 2017-03-20 00:01 | EDM.PDOC ---
ED HPI GENERAL MEDICAL PROBLEM - General Chief Complaint: Upper Extremity Injury/Pain Stated Complaint: PT FELL AND HURT LT SHOULDER Time Seen by Provider: 03/19/17 23:27 - History of Present Illness INITIAL COMMENTS - FREE TEXT/NARRATIVE: HISTORY AND PHYSICAL: History of present illness: The patient is a 42-year-old male who has a history last year of frequent ER visits and drug-seeking behavior who presents with complaints of left shoulder pain with a new diagnosis of a "tear" in his shoulder that was diagnosed by an MRI in [place] month ago. He says he received a "cortisone injection" from the orthopedic doctor there and he was supposed to follow-up to decide what the next step would be in his been doing well until he had a fall 2 days ago when he was on some steps and lost his footing and fell forward telling nursing he landed on his hands but telling me he landed on his bent arm and reinjured his left shoulder. Patient denied that he passed out or blacked out and did not hit his head neck or back and denies any hand pain to me. He has had no systemic complaints and has been using [id number] Tylenol for pain for his shoulder. Patient presents tonight for reevaluation and he has not contacted his doctor in [place]. Review of systems: As per history of present illness and below otherwise all systems reviewed and negative. Past medical history: As per history of present illness and as reviewed below otherwise noncontributory. Surgical history: As per history of present illness and as reviewed below otherwise noncontributory. Social history: No reported history of drug or alcohol abuse. Family history: As per history of present illness and as reviewed below otherwise noncontributory. Physical exam: Gen.: Well-developed well-nourished man who is nontoxic and vital signs were noted by me HEENT: Atraumatic, normocephalic, negative for conjunctival pallor or scleral icterus, mucous membranes moist, throat clear, neck supple, nontender, trachea midline. Lungs: Clear to auscultation, breath sounds equal bilaterally, chest nontender. Heart: S1S2, regular and rhythm no overt murmurs Abdomen: Soft, nondistended, nontender. NABS Pelvis: Deferred Genitourinary: Deferred. Rectal: Deferred. Extremities: Atraumatic, there are no bony deformities start all extremities including the left shoulder area. There is no soft tissue swelling or joint effusion or trigger point tenderness on my exam and distally neurovascular is intact without any tenderness to the distal humerus elbow forearm wrist or hand. When I palpate the shoulder area the patient does not complain of discomfort. The legs are negative for cords or calf pain. Neurovascular unremarkable. Neuro: Awake, alert, oriented. Cranial nerves II through XII unremarkable. Cerebellum unremarkable. Motor and sensory unremarkable throughout. Exam nonfocal. Diagnostics: X-ray left shoulder Therapeutics: Sling Patient tells me that he is allergic to Toradol and tramadol and took ibuprofen and Tylenol prior to coming here. I've given him an ice pack and will give him 2 Tylenol with codeine here I did perform a search in the [place] prescription awareness program and the patient has been frequenting the Emergency Department at [facility] in [place] with visits in November as well as a visit on February 01 and with all of these he received pain medication, narcotics, for his complaints. Patient was seen February 20 and prescribed Tylenol with codeine by Dr. Hough and prior to that prescription he had received Tylenol with codeine on February 12. I discussed all of this with the patient and the need for him to follow-up with Dr. Hough for further care and management of his pain. I will provide him a sling and advised resting of the joint area ice and [id number] medications until he can follow-up with his orthopedic doctor. Impression: Left shoulder injury/contusion acute on chronic Definitive disposition and diagnosis as appropriate pending reevaluation and review of above. left shoulder;both hands Pain Score (Numeric/FACES): 7 - Related Data Allergies Allergy/AdvReac Type Severity Reaction Status Date / Time ketorolac [From Toradol] Allergy Difficulty Verified 03/19/17 23:29 Breathing tramadol Allergy Difficulty Uncoded 03/19/17 23:29 Breathing Home Meds: Home Meds . [No Known Home Meds] 06/11/16 [History] Past Medical History - Past Health History Medical/Surgical History: Denies Medical/Surgical History HEENT History: Reports: Impaired Vision Musculoskeletal History: Reports: Other (See Below) Other Musculoskeletal History: knee surgery Neurological History: Reports: Migraines Psychiatric History: Reports: None - Infectious Disease History Infectious Disease History: Reports: Chicken Pox - Past Surgical History Musculoskeletal Surgical History: Reports: Shoulder Surgery Social & Family History - Family History Family Medical History: Noncontributory - Tobacco Use Smoking Status *Q: Current Every Day Smoker Years of Tobacco use: 25 Packs/Tins Daily: 1 - Caffeine Use Caffeine Use: Reports: None Caffeine Use Comment: 2-3 drinks daily - Recreational Drug Use Recreational Drug Use: No Review of Systems - Review of Systems Review Of Systems: ROS reveals no pertinent complaints other than HPI. ED EXAM, GENERAL - Physical Exam Exam: See Below (See dictation) Course - Vital Signs Last Recorded V/S: Last Vital Signs Temp 36.4 C 03/19/17 23:22 Pulse 88 03/19/17 23:22 Resp 18 03/19/17 23:22 BP 127/70 03/19/17 23:22 Pulse Ox 97 03/19/17 23:22 - Orders/Labs/Meds Orders: Active Orders 24 hr Category Date Time Status Shoulder Comp Lt [CR] Stat Exams 03/20/17 00:01 Taken DME for Discharge [COMM] Stat Oth 03/20/17 00:27 Ordered Meds: Medications Discontinued Medications Generic Name Dose Route Start Last Admin Trade Name Sharri PRN Reason Stop Dose Admin Acetaminophen/Codeine Phosphate 1 tab 03/20/17 00:15 Tylenol With Codeine No.3 300mg/30mg PO 03/20/17 00:16 ONETIME ONE Acetaminophen/Codeine Phosphate 2 tab 03/20/17 00:17 03/20/17 00:22 Tylenol With Codeine No.3 300mg/30mg PO 03/20/17 00:18 2 tab ONETIME ONE Administration Departure - Departure Time of Disposition: 00:27 Disposition: Home, Self-Care 01 Condition: Good Clinical Impression: Left shoulder pain Qualifiers: Chronicity: acute Qualified Code(s): M25.512 - Pain in left shoulder - Discharge Information Referrals: PCP,None [Primary Care Provider] - Forms: ED Department Discharge Additional Instructions: The following information is given to patients seen in the emergency department who are being discharged to home. This information is to outline your options for follow-up care. We provide all patients seen in our emergency department with a follow-up referral. The need for follow-up, as well as the timing and circumstances, are variable depending upon the specifics of your emergency department visit. If you don't have a primary care physician on staff, we will provide you with a referral. We always advise you to contact your personal physician following an emergency department visit to inform them of the circumstance of the visit and for follow-up with them and/or the need for any referrals to a consulting specialist. The emergency department will also refer you to a specialist when appropriate. This referral assures that you have the opportunity for followup care with a specialist. All of these measure are taken in an effort to provide you with optimal care, which includes your followup. Under all circumstances we always encourage you to contact your private physician who remains a resource for coordinating your care. When calling for followup care, please make the office aware that this follow-up is from your recent emergency room visit. If for any reason you are refused follow-up, please contact the [facility] emergency department at and ask to speak to the emergency department charge nurse. [facility]--Orthopedic clinic Professional [address] [address] Use ice to area for discomfort and use [id number] medications as you have been doing for pain. Please call and follow-up with one of our providers in the ortho clinic or contact your orthopedics in [place] for further care and evaluation of these problems. Return to ER as needed and as discussed - My Orders Last 24 Hours: My Active Orders 03/20/17 00:01 Shoulder Comp Lt [CR] Stat 03/20/17 00:27 DME for Discharge [COMM] Stat - Assessment/Plan Last 24 Hours: My Active Orders 03/20/17 00:01 Shoulder Comp Lt [CR] Stat 03/20/17 00:27 DME for Discharge [COMM] Stat
[2017-03-20] MEDS ORDERED: Acetaminophen/Codeine 300-30 MG Tab PO ONE ×2 (00:15→00:17)
[2017-03-20 00:40] VITALS: BP 126/84
--- NOTE | 2017-03-20 09:49 | CR ---
EXAM DATE: 03/19/17 PATIENT'S AGE: 42 Patient: IMANI JACKSON Facility: [place], [place] Site . Site : [id number] Study: XRay Shoulder Left [id number]/7/2018 12:21:36 AM Ordering Physician: Gianfranco Yaadv Final Report: INDICATION: L shoulder pain after fall TECHNIQUE: Three views of the left shoulder COMPARISON: None FINDINGS: Bones: No fractures or bone lesions. Joint spaces: Unremarkable. Soft tissues: Unremarkable. IMPRESSION: No acute bony abnormality Dictated by Riley Mendieta MD @ 03/20/2017 12:25:13 AM Dictated by: Riley Mendieta MD @ 03/20/2017 00:25:22 (Electronic Signature) Report Signed by Proxy. [facility]
== END 2017-03-20 00:38 | disposition home or self-care (01) ==
LOC: MW.ED 23:22
DX: S40.012A Contusion of left shoulder, initial encounter (principal); F17.210 Nicotine dependence, cigarettes, uncomplicated; Z88.6 Allergy status to analgesic agent; Z88.5 Allergy status to narcotic agent; W19.XXXA Unspecified fall, initial encounter
CPT/HCPCS: 73030; 99283; A9270